=== PATIENT | female | born 1985 | race Caucasian/White ===

== ENCOUNTER 2021-03-18 02:47 | Emergency (ER) | payer OTHER ==
[2021-03-18 02:58] VITALS: RESP 18
[2021-03-18] MEDS ORDERED: Acetaminophen-Codeine 300-30mg TAB PO STA (03:45)
[2021-03-18] MEDS ORDERED: KETOROLAC 15 MG/ML 1 ML VIAL IM STA (03:45)
--- NOTE | 2021-03-18 03:47 | ED ---
Back Pain HPI - General Chief Complaint: Back Pain/Injury Stated Complaint: Back pain Time Seen by Provider: 03/18/21 02:48 Source: patient, RN notes reviewed, old records reviewed Limitations: no limitations - History of Present Illness Initial Comments: This is a 35-year-old female who presents here today. Back pain bilateral back pain that radiates from both flanks. Low back pain groin area. Patient has otherwise no significant complaints, noted dysuria, no blood in the urine no difficulty with bowel movements. No trauma no fevers. MD Complaint: back pain -: days(s) (3) Similar Symptoms Previously: Yes Place: home Radiation: groin Severity: moderate Severity scale (1-10): 4 Quality: dull Consistency: intermittent Improves With: none Worsens With: none Context: unknown Associated Symptoms: denies other symptoms Treatments Prior to Arrival: acetaminophen, other (none) - Related Data Allergies Allergy/AdvReac Type Severity Reaction Status Date / Time morphine AdvReac Itching Verified 03/18/21 02:58 Review of Systems ROS Statement: Those systems with pertinent positive or pertinent negative responses have been documented in the HPI. ROS Other: All systems not noted in ROS Statement are negative. Past Medical History Past Medical History: No Reported History Additional Past Medical History / Comment(s): OCD, History of Any Multi-Drug Resistant Organisms: None Reported Past Surgical History: Cholecystectomy Past Psychological History: Bipolar Smoking Status: Current every day smoker Past Alcohol Use History: None Reported Past Drug Use History: Marijuana General Exam Limitations: no limitations General appearance: alert, in no apparent distress Head exam: Present: atraumatic, normocephalic, normal inspection Eye exam: Present: normal appearance, PERRL, EOMI. Absent: scleral icterus, conjunctival injection, periorbital swelling ENT exam: Present: normal exam, mucous membranes moist Neck exam: Present: normal inspection. Absent: tenderness, meningismus, lymphadenopathy Respiratory exam: Present: normal lung sounds bilaterally. Absent: respiratory distress, wheezes, rales, rhonchi, stridor Cardiovascular Exam: Present: regular rate, normal rhythm, normal heart sounds. Absent: systolic murmur, diastolic murmur, rubs, gallop, clicks GI/Abdominal exam: Present: soft, normal bowel sounds. Absent: distended, tenderness, guarding, rebound, rigid Extremities exam: Present: normal inspection, full ROM, normal capillary refill. Absent: tenderness, pedal edema, joint swelling, calf tenderness Back exam: Present: normal inspection Neurological exam: Present: alert, oriented X3, CN II-XII intact Psychiatric exam: Present: normal affect, normal mood Skin exam: Present: warm, dry, intact, normal color. Absent: rash Course Vital Signs 03/18/21 03/18/21 03/18/21 02:52 05:00 05:53 Temperature 99.2 F 98.7 F Pulse Rate 92 83 61 Respiratory 18 18 18 Rate Blood Pressure 115/76 105/53 124/79 O2 Sat by Pulse 96 98 98 Oximetry - Reevaluation(s) Reevaluation #1: 03/18/21 03:47 Medical record is reviewed Reevaluation #2: Patient symptoms are significantly improved Patient family informed results questions answered Medical Decision Making - Medical Decision Making 35 female to the ER for evaluation of back pain severe back pain positive for kidney stone pain is well-controlled currently and patient can be discharged home - Lab Data Lab Results 03/18/21 03/18/21 Range/Units 03:55 03:55 Urine Color Yellow Urine Appearance Clear (Clear) Urine pH 6.5 (5.0-8.0) Ur Specific [place] 1.021 (1.001-1.035) Urine Protein Negative (Negative) Urine Glucose (UA) Negative (Negative) Urine Ketones Negative (Negative) Urine Blood Negative (Negative) Urine Nitrite Negative (Negative) Urine Bilirubin Negative (Negative) Urine Urobilinogen <2.0 (<2.0) mg/dL Ur Leukocyte Esterase Negative (Negative) Urine HCG, Qual Not Detected (Not Detectd) - Radiology Data Radiology results: report reviewed (CT abdomen and pelvis is positive for kidney stone), image reviewed Disposition Clinical Impression: Mid back pain, Kidney stone Disposition: HOME SELF-CARE Condition: Good Instructions (If sedation given, give patient instructions): Acute Low Back Pain (ED) Is patient prescribed a controlled substance at d/c from ED?: No Referrals: None,Stated [Primary Care Provider] - 1-2 days
[2021-03-18 04:32] LABS: Appearance,Urine Clear (Clear); Bilirubin,Urine Negative (Negative); Blood,Urine Negative (Negative); Color,Urine Yellow; Glucose,Urine (UA) Negative (Negative); Ketones,Urine Negative (Negative); Leukocyte Esterase,Urine Negative (Negative); Nitrite,Urine Negative (Negative); PH, Urine 6.5 (5.0-8.0); Protein,Urine Negative (Negative); Specific Gravity,Urine 1.021 (1.001-1.035); Urobilinogen,Urine <2.0 mg/dL (<2.0)
--- NOTE | 2021-03-18 05:26 | CT ---
EXAMINATION TYPE: CT abdomen pelvis wo con DATE OF EXAM: 03/18/2021 COMPARISON: None HISTORY: bilateral flank pain and back pain CT DLP: 632.50 mGycm Automated exposure control for dose reduction was used. Images obtained from the diaphragm to the floor the pelvis without contrast. Lung bases are clear. There is no pleural effusion. Heart size is normal. There is no pericardial eff usion. There are clips from cholecystectomy. Liver and spleen appear intact. The bile ducts are not dilated. There is no evidence of pancreatic mass. The stomach is intact. There is no adrenal mass. Kidneys have normal size. There is no hydronephrosis. There is 2 mm calculu s upper pole left kidney. There is no evidence of a solid renal mass. There is no retroperitoneal breezy nopathy. The bladder distends smoothly. There is no inguinal hernia. There is no free fluid in the pe lvis. I see no evidence of a pelvic mass. Uterus is anteverted. There is no mesenteric edema. There is no ascites or free air. There is no bowel obstruction. Appendi x is posterior in the pelvis and appears normal. The lumbar vertebra have normal spacing and alignment. Posterior elements are intact. Disc spaces are well-maintained. The hip joints are intact. Bony pelvis is intact. IMPRESSION: Nonobstructing left renal calculus. No dilated ducts. Normal appendix.
[2021-03-18] MEDS ORDERED: TAMSULOSIN 0.4 MG CAP.ER.24H PO STA (05:44)
[2021-03-18] MEDS ORDERED: ACET/COD 300 MG/30 MG STARTER PACK 6 TAB BTL PO STA (05:45)
[2021-03-18] MEDS ORDERED: IBUPROFEN 600 MG STARTER PACK 4 TAB BTL PO STA (05:45)
[2021-03-18 06:00] VITALS: BP 124/79; PULSE 61; TEMP 98.7
== END 2021-03-18 06:01 | disposition home or self-care (01) ==
LOC: EC 02:47
DX: N20.0 Calculus of kidney (principal); M54.6 Pain in thoracic spine; F17.200 Nicotine dependence, unspecified, uncomplicated; Z88.5 Allergy status to narcotic agent
CPT/HCPCS: 81003; 81025; 74176; 99284; 96372; J1885

== ENCOUNTER 2021-06-08 07:56 | Emergency (ER) | payer OTHER ==
[2021-06-08] MEDS ORDERED: SODIUM CHLORIDE 0.9% 2,000 ML IV STA (08:00)
[2021-06-08] MEDS ORDERED: diphenhydrAMINE 50 MG/ML 1 ML VIAL IVP STA (08:00)
[2021-06-08] MEDS ORDERED: ONDANSETRON 4 MG/2 ML VIAL IVP STA (08:00)
[2021-06-08] MEDS ORDERED: FAMOTIDINE 20 MG/2 ML VIAL IV STA (08:02)
[2021-06-08] MEDS ORDERED: HYDROmorphone 0.2 MG/1 ML SYRINGE IVP STA (08:02)
[2021-06-08 08:12] VITALS: TEMP 98.2
--- NOTE | 2021-06-08 08:20 | ED ---
General Adult HPI - General Chief complaint: Abdominal Pain Stated complaint: Nausea/Vomiting Time Seen by Provider: 06/08/21 08:00 Source: patient, EMS, RN notes reviewed, old records reviewed Mode of arrival: EMS Limitations: no limitations - History of Present Illness Initial comments: Vanessa is a 35-year-old female with no significant past medical history who presents emergency Department complaining of a three-day history of nonbiliious nonbloody nausea, vomiting. Similar symptoms are present and multiple family members at home. Everyone else was tested for Covid except for the patient. All tested negative for Covid. The patient was not vaccinated for Covid. She endorses in addition to the nonbilious nonbloody emesis, some episodes of loose nonbloody bowel movements. Denies any fevers. Denies any shortness of breath or chest pain. Endorses epigastric and right upper quadrant abdominal pain. This pain is worse when she throws up. Describes it as achy. Does not radiate. Denies any dysuria, hematuria, vaginal discharge or bleeding. Denies being . States she has not been able to keep anything down the last few days. She does smoke marijuana on a daily basis. Denies any other drug use or alcohol use. Presents emergency department over concern for nausea vomiting. Patient is actively vomiting as I obtain history. - Related Data Previous Rx's Medication Instructions Recorded Famotidine [Pepcid] 20 mg PO DAILY 14 Days #14 tablet 06/08/21 Mag Hydrox/Al Hydrox/Simeth 30 ml PO BID PRN #500 ml 06/08/21 [Maalox] Ondansetron Odt [Zofran Odt] 4 mg PO Q8HR PRN 3 Days #9 tab 06/08/21 Allergies Allergy/AdvReac Type Severity Reaction Status Date / Time morphine AdvReac Itching Verified 06/08/21 08:12 Review of Systems ROS Statement: Those systems with pertinent positive or pertinent negative responses have been documented in the HPI. Review of Systems: CONST: Denies fever EYES: Denies blurry vision ENT: Denies nasal congestion C/V: Denies Chest pain RESP: Denies shortness of breath GI: Endorses abdominal pain, nausea, vomiting : Denies dysuria SKIN: Denies rash. MSK: Denies joint pain. NEURO: Denies headache ROS Other: All systems not noted in ROS Statement are negative. Past Medical History Past Medical History: No Reported History Additional Past Medical History / Comment(s): OCD History of Any Multi-Drug Resistant Organisms: None Reported Past Surgical History: Cholecystectomy Past Psychological History: Bipolar Smoking Status: Current every day smoker Past Alcohol Use History: None Reported Past Drug Use History: Marijuana General Exam - General Exam Comments Initial Comments: General: Appears in no active distress secondary to nausea and vomiting. HEAD: Normal with no signs of head trauma. EYES: PERRLA, EOMI, conjunctiva normal, no discharge. ENT: Hearing grossly intact, normal oropharynx. Dry mucous membranes. RESPIRATORY: Clear breath sounds bilaterally. No wheezes, rales, or rhonchi. C/V: Regular rate and rhythm. S1 and S2 auscultated, no edema, peripheral pulses 2+ and intact throughout ABD: Abdomen is soft, nondistended. Patient is tender to palpation in the epigastric and right upper quadrant region. No guarding. No peritoneal signs. No rebound tenderness. EXT: Normal range of motion, no obvious deformity SKIN: No rashes or lesions observed on exposed skin. NEURO: Alert and oriented 4. No focal deficits. Limitations: no limitations Course Vital Signs 06/08/21 06/08/21 08:02 09:27 Temperature 98.2 F Pulse Rate 73 57 L Respiratory 22 16 Rate Blood Pressure 131/93 105/61 O2 Sat by Pulse 98 96 Oximetry Medical Decision Making - Medical Decision Making Based on the patient's presentation and physical exam, I am concerned for acute intra-abdominal process for the patient. Femoral COVID-19 infection. Therefore we will obtain abdominal laboratory studies, right upper quadrant ultrasound, as well as COVID-19 swab. She'll be symptomatically treated with 1 L fluid bolus, antiemetics and pain medication. Patient was in agreement with this plan.Screening EKG will be obtained as well. Patient's EKG showed no signs of ischemia. Chest x-ray shows no acute cardiopulmonary process. Gallbladder ultrasound reveals chronic changes status post cholecystectomy with a mildly enlarged liver as well as mildly dilated CBD which could be secondary to his surgery. Corresponding LFTs and alk phos are unchanged. Bilirubin is normal. No suspicion for obstructive process at this time and the biliary tree. Laboratory studies otherwise are remarkable for mild with is likely reactive leukocytosis of 13.9. CBC shows signs of hemoconcentration secondary to dehydration. Patient has a mild acidosis with a slight anion gap which is likely secondary to dehydration. Patient is a mild [place] eye with a creatinine of 1.22 and BUN 23 which is likely secondary to dehydration. Urinalysis is unremarkable. Patient is not . Covid 19 swab is negative. On reevaluation following multiple fluid boluses, and antiemetic treatment she is feeling improved. We discussed results of her laboratory studies and imaging. I believe it is safer to be discharged home at this time and she was in agreement this plan. She is asking to leave immediately. I discussed with her that due to her symptoms, is likely the entire household has a viral illness causing the current GI symptoms. We discussed the importance of a bland diet as well as hydration. She was in agreement and expressed understanding. I will provide the patient with a prescription for Zofran ODT, famotidine, Maalox. I instructed the patient to follow up with their PCP in the next 3 days. I provided contact information for follow up with PCP Dr. Hood.. I explained that the patient should return to the emergency department if they experience any worsening symptoms. Strict return precautions were discussed with the patient. The patient expressed understanding of these instructions. I answered all questions that the patient had. The patient was discharged home in fair condition with their prescriptions and follow up information. - Lab Data Result diagrams: 06/08/21 08:13 06/08/21 08:13 Lab Results 06/08/21 06/08/21 06/08/21 Range/Units 08:13 08:13 08:13 WBC 13.9 H (3.8-10.6) k/uL RBC 6.00 H (3.80-5.40) m/uL Hgb 16.7 H (11.4-16.0) gm/dL Hct 49.5 H (34.0-46.0) % MCV 82.6 (80.0-100.0) fL MCH 27.8 (25.0-35.0) pg MCHC 33.7 (31.0-37.0) g/dL RDW 13.6 (11.5-15.5) % Plt Count 509 H (150-450) k/uL MPV 7.4 Neutrophils % 74 % Lymphocytes % 17 % Monocytes % 5 % Eosinophils % 1 % Basophils % 0 % Neutrophils # 10.3 H (1.3-7.7) k/uL Lymphocytes # 2.4 (1.0-4.8) k/uL Monocytes # 0.7 (0-1.0) k/uL Eosinophils # 0.1 (0-0.7) k/uL Basophils # 0.0 (0-0.2) k/uL PT 10.8 (9.0-12.0) sec INR 1.0 (<1.2) APTT 25.1 (22.0-30.0) sec Sodium 136 L (137-145) mmol/L Potassium 3.7 (3.5-5.1) mmol/L Chloride 104 (98-107) mmol/L Carbon Dioxide 13 L (22-30) mmol/L Anion Gap 19 mmol/L BUN 23 H (7-17) mg/dL Creatinine 1.22 H (0.52-1.04) mg/dL Est GFR (CKD-EPI)AfAm 66 (>60 ml/min/1.73 sqM) Est GFR (CKD-EPI)NonAf 58 (>60 ml/min/1.73 sqM) Glucose 171 H (74-99) mg/dL Calcium 9.7 (8.4-10.2) mg/dL Total Bilirubin 1.2 (0.2-1.3) mg/dL AST 26 (14-36) U/L ALT 25 (4-34) U/L Alkaline Phosphatase 88 (38-126) U/L Total Protein 8.7 H (6.3-8.2) g/dL Albumin 4.9 (3.5-5.0) g/dL Amylase 54 (30-110) U/L Lipase 41 (23-300) U/L Urine Color Urine Appearance (Clear) Urine pH (5.0-8.0) Ur Specific [place] (1.001-1.035) Urine Protein (Negative) Urine Glucose (UA) (Negative) Urine Ketones (Negative) Urine Blood (Negative) Urine Nitrite (Negative) Urine Bilirubin (Negative) Urine Urobilinogen (<2.0) mg/dL Ur Leukocyte Esterase (Negative) Urine HCG, Qual (Not Detectd) Coronavirus (PCR) (Not Detectd) 06/08/21 06/08/21 06/08/21 Range/Units 08:13 08:13 10:00 WBC (3.8-10.6) k/uL RBC (3.80-5.40) m/uL Hgb (11.4-16.0) gm/dL Hct (34.0-46.0) % MCV (80.0-100.0) fL MCH (25.0-35.0) pg MCHC (31.0-37.0) g/dL RDW (11.5-15.5) % Plt Count (150-450) k/uL MPV Neutrophils % % Lymphocytes % % Monocytes % % Eosinophils % % Basophils % % Neutrophils # (1.3-7.7) k/uL Lymphocytes # (1.0-4.8) k/uL Monocytes # (0-1.0) k/uL Eosinophils # (0-0.7) k/uL Basophils # (0-0.2) k/uL PT (9.0-12.0) sec INR (<1.2) APTT (22.0-30.0) sec Sodium (137-145) mmol/L Potassium (3.5-5.1) mmol/L Chloride (98-107) mmol/L Carbon Dioxide (22-30) mmol/L Anion Gap mmol/L BUN (7-17) mg/dL Creatinine (0.52-1.04) mg/dL Est GFR (CKD-EPI)AfAm (>60 ml/min/1.73 sqM) Est GFR (CKD-EPI)NonAf (>60 ml/min/1.73 sqM) Glucose (74-99) mg/dL Calcium (8.4-10.2) mg/dL Total Bilirubin (0.2-1.3) mg/dL AST (14-36) U/L ALT (4-34) U/L Alkaline Phosphatase (38-126) U/L Total Protein (6.3-8.2) g/dL Albumin (3.5-5.0) g/dL Amylase (30-110) U/L Lipase (23-300) U/L Urine Color Yellow Urine Appearance Clear (Clear) Urine pH 6.5 (5.0-8.0) Ur Specific [place] 1.017 (1.001-1.035) Urine Protein Trace H (Negative) Urine Glucose (UA) Negative (Negative) Urine Ketones Negative (Negative) Urine Blood Negative (Negative) Urine Nitrite Negative (Negative) Urine Bilirubin Negative (Negative) Urine Urobilinogen <2.0 (<2.0) mg/dL Ur Leukocyte Esterase Negative (Negative) Urine HCG, Qual Not Detected (Not Detectd) Coronavirus (PCR) Not Detected (Not Detectd) - EKG Data -: EKG Interpreted by Me EKG Comments: 12-lead Electrocardiogram Interpretation Note EKG was reviewed and interpreted by myself. 12-lead ECG performed at 0831 is interpreted by me as revealing normal sinus rhythm at a rate of 63 beats per minute. [place] is normal. NE interval is 132 ms, QRS duration is 98 ms, QTc is 476 ms.. There were no ST or T wave abnormalities to suggest myocardial is chemia or injury. R wave progression across the precordium was satisfactory. By my interpretation this EKG is non-diagnostic for acute ischemia. Disposition Clinical Impression: Nausea and vomiting, Dehydration, Viral syndrome Disposition: HOME SELF-CARE Condition: Fair Prescriptions: Mag Hydrox/Al Hydrox/Simeth [Maalox] 30 ml PO BID PRN #500 ml PRN Reason: Dyspepsia Famotidine [Pepcid] 20 mg PO DAILY 14 Days #14 tablet Ondansetron Odt [Zofran Odt] 4 mg PO Q8HR PRN 3 Days #9 tab PRN Reason: Nausea Is patient prescribed a controlled substance at d/c from ED?: No Referrals: None,Stated [Primary Care Provider] - 1-2 days Ryanne Hood MD [REFERRING] - 1-2 days
[2021-06-08 08:26] LABS: Basophils % (A) 0 %; Eosinophils # (A) 0.1 k/uL (0-0.7); Eosinophils % (A) 1 %; HCT 49.5 % (34.0-46.0); HGB 16.7 gm/dL (11.4-16.0); Lymphocytes # (A) 2.4 k/uL (1.0-4.8); Lymphocytes % (A) 17 %; MCH 27.8 pg (25.0-35.0); MCHC 33.7 g/dL (31.0-37.0); MCV 82.6 fL (80.0-100.0); Mean Platelet Volume 7.4; Monocytes # (A) 0.7 k/uL (0-1.0); Monocytes % (A) 5 %; Neutrophils # (A) 10.3 k/uL (1.3-7.7); Neutrophils % (A) 74 %; Platelet Count 509 k/uL (150-450); RDW 13.6 % (11.5-15.5); WBC 13.9 k/uL (3.8-10.6)
[2021-06-08 08:39] LABS: Albumin 4.9 g/dL (3.5-5.0); Calcium 9.7 mg/dL (8.4-10.2); Potassium 3.7 mmol/L (3.5-5.1); Total Bilirubin 1.2 mg/dL (0.2-1.3); Total Protein 8.7 g/dL (6.3-8.2)
[2021-06-08 09:02] LABS: Partial Thromboplastin Time 25.1 sec (22.0-30.0); Prothrombin Time 10.8 sec (9.0-12.0)
[2021-06-08] MEDS ORDERED: MAGNESIUM SULFATE-D5W PMX 1 GM in DEXTROSE/WATER 1 100ML.BAG IVPB ONE (09:09)
[2021-06-08] MEDS ORDERED: HALOPERIDOL LACTATE 5 MG/ML 1 ML VIAL IVP STA (09:09)
--- NOTE | 2021-06-08 09:11 | XR ---
EXAMINATION TYPE: XR chest 2V DATE OF EXAM: 06/08/2021 COMPARISON: NONE HISTORY: Shortness of breath and weakness. TECHNIQUE: Frontal and lateral views of the chest are obtained. FINDINGS: There is no focal air space opacity, pleural effusion, or pneumothorax seen. The cardiac silhouette size is within normal limits. The osseous structures are intact. Cholecystectomy clips n oted on lateral view. IMPRESSION: No acute cardiopulmonary process.
--- NOTE | 2021-06-08 09:14 | US ---
EXAMINATION TYPE: US gallbladder DATE OF EXAM: 06/08/2021 COMPARISON: CT A&P 03/18/2021 CLINICAL HISTORY: 35-year-old female RUQ abd pain. Patient has had gallbladder removed. RUQ pain, [place] and vomiting. TECHNIQUE: Multiple sonographic images of the right upper quadrant are obtained. FINDINGS: EXAM MEASUREMENTS: Liver Length: 15.9 cm CBD: 0.87 cm Right Kidney: 9.2 x 4.0 x 5.0 cm Tax Accountant notes: Difficult exam due to constant patient movement Pancreas: Appears slightly echogenic Liver: Slightly echogenic periportal fat may be on a technical basis. No focal lesion seen. Gallbladder: Surgically absent Evidence for sonographic Camejo's sign: No CBD: No obstruction noted in portions visualized. Right Kidney: No hydronephrosis or masses seen IMPRESSION: 1. Echogenic periportal fat within the liver may be on a technical basis. Findings may also be seen w ith hepatitis. Correlate for normal LFTs. 2. Mildly dilated bile duct at 8.7 mm probably due to postcholecystectomy status. Correlate with tacos line phosphatase and bilirubin levels.
[2021-06-08 09:28] VITALS: RESP 16
[2021-06-08 10:17] LABS: Appearance,Urine Clear (Clear); Bilirubin,Urine Negative (Negative); Blood,Urine Negative (Negative); Color,Urine Yellow; Glucose,Urine (UA) Negative (Negative); Ketones,Urine Negative (Negative); Leukocyte Esterase,Urine Negative (Negative); Nitrite,Urine Negative (Negative); PH, Urine 6.5 (5.0-8.0); Protein,Urine Trace (Negative); Specific Gravity,Urine 1.017 (1.001-1.035); Urobilinogen,Urine <2.0 mg/dL (<2.0)
[2021-06-08] MEDS ORDERED: ONDANSETRON 4 MG ODT STARTER PACK 2 TAB BTL PO STA (10:42)
[2021-06-08 10:51] VITALS: BP 125/89; PULSE 61
== END 2021-06-08 10:51 | disposition home or self-care (01) ==
LOC: EC 07:56
DX: B34.9 Viral infection, unspecified (principal); E86.0 Dehydration; Z20.822 Contact with and (suspected) exposure to COVID-19
CPT/HCPCS: 36415; 93005; 80053; 82150; 83690; 85025; 85610; 85730; 81003; 81025; 87635; 71046; 76705; 99284; 96365; 96375; 96361; J1200; J1630; J2405; J3475; J1170; 99285

== ENCOUNTER 2021-06-09 04:41 | Emergency (ER) | payer OTHER ==
[2021-06-09 04:46] VITALS: TEMP 98.2
--- NOTE | 2021-06-09 05:39 | XR ---
EXAMINATION TYPE: XR KUB DATE OF EXAM: 06/09/2021 COMPARISON: NONE HISTORY: Nausea and vomiting TECHNIQUE: 2 views FINDINGS: There is no sign of intestinal obstruction or pneumoperitoneum. Fecal pattern is normal. Th ere are clips from cholecystectomy. There is no evidence of a mass. Lung bases are clear. IMPRESSION: Nonacute abdomen.
[2021-06-09] MEDS: ONDANSETRON 4 MG/2 ML VIAL IVP STA (05:42)
[2021-06-09 05:43] LABS: Basophils % (A) 0 %; Eosinophils # (A) 0.1 k/uL (0-0.7); Eosinophils % (A) 1 %; HCT 44.9 % (34.0-46.0); Lymphocytes # (A) 2.2 k/uL (1.0-4.8); Lymphocytes % (A) 22 %; MCH 26.9 pg (25.0-35.0); MCHC 33.3 g/dL (31.0-37.0); MCV 80.9 fL (80.0-100.0); Mean Platelet Volume 7.2; Monocytes # (A) 0.7 k/uL (0-1.0); Monocytes % (A) 6 %; Neutrophils % (A) 68 %; Platelet Count 395 k/uL (150-450); RBC 5.56 m/uL (3.80-5.40); RDW 13.5 % (11.5-15.5); WBC 10.2 k/uL (3.8-10.6)
[2021-06-09] MEDS: SODIUM CHLORIDE 0.9% 2,000 ML IV ONE (05:43)
[2021-06-09 05:56] LABS: Albumin 4.4 g/dL (3.5-5.0); Calcium 8.9 mg/dL (8.4-10.2); Potassium 3.8 mmol/L (3.5-5.1); Total Protein 7.7 g/dL (6.3-8.2)
[2021-06-09 06:15] LABS: Appearance,Urine Turbid (Clear); Bacteria,Urine Rare /hpf; Bilirubin,Urine Negative (Negative); Blood,Urine Trace (Negative); Color,Urine Yellow; Glucose,Urine (UA) Negative (Negative); Ketones,Urine 1+ (Negative); Leukocyte Esterase,Urine Large (Negative); Mucus,Urine Rare /hpf; Nitrite,Urine Negative (Negative); Protein,Urine 1+ (Negative); RBC,Urine 11 /hpf (0-5); Specific Gravity,Urine 1.033 (1.001-1.035); Squamous Epithelial Cell,Urine 76 /hpf (0-4); WBC,Urine 35 /hpf (0-5)
[2021-06-09] MEDS: PROCHLORPERAZINE INJ 10 MG/2 ML VIAL IM STA ×2 (06:44→08:21)
[2021-06-09] MEDS: KETOROLAC 15 MG/ML 1 ML VIAL IVP STA (08:13)
--- NOTE | 2021-06-09 08:41 | ED ---
Nausea/Vomiting/Diarrhea HPI - General Chief complaint: Nausea/Vomiting/Diarrhea Stated complaint: Vomiting Time Seen by Provider: 06/09/21 04:42 Source: patient, EMS Mode of arrival: EMS - History of Present Illness Initial comments: Patient is a 35-year-old woman here for nausea and vomiting. She has had some intermittent abdominal cramping but the vomiting is the main complaint. She was seen here earlier and sent home with prescription for antiemetic but had not had a chance to get the medication. Patient has not had any blood or coffee-ground emesis. MD complaint: nausea, vomiting -: days(s) Description of Vomiting: food contents Location: diffuse Severity: mild Quality: cramping Consistency: intermittent Improves with: none Worsens with: none Associated Symptoms: denies other symptoms - Related Data Previous Rx's Medication Instructions Recorded Famotidine [Pepcid] 20 mg PO DAILY 14 Days #14 tablet 06/08/21 Mag Hydrox/Al Hydrox/Simeth 30 ml PO BID PRN #500 ml 06/08/21 [Maalox] Ondansetron Odt [Zofran Odt] 4 mg PO Q8HR PRN 3 Days #9 tab 06/08/21 Prochlorperazine [Compazine] 10 mg PO Q6H PRN #15 tab 06/09/21 Allergies Allergy/AdvReac Type Severity Reaction Status Date / Time morphine AdvReac Itching Verified 06/08/21 08:12 Review of Systems ROS Statement: Those systems with pertinent positive or pertinent negative responses have been documented in the HPI. ROS Other: All systems not noted in ROS Statement are negative. Constitutional: Denies: fever, chills Respiratory: Denies: cough, dyspnea Cardiovascular: Denies: chest pain, palpitations Gastrointestinal: Reports: abdominal pain, nausea, vomiting. Denies: diarrhea, constipation, hematemesis, melena, hematochezia Genitourinary: Denies: dysuria, hematuria Musculoskeletal: Denies: back pain Skin: Denies: rash Neurological: Denies: headache, weakness, numbness Past Medical History Past Medical History: No Reported History Additional Past Medical History / Comment(s): OCD History of Any Multi-Drug Resistant Organisms: None Reported Past Surgical History: Cholecystectomy Past Psychological History: Bipolar Smoking Status: Current every day smoker Past Alcohol Use History: None Reported Past Drug Use History: Marijuana General Exam General appearance: alert, in no apparent distress Head exam: Present: atraumatic, normocephalic Eye exam: Present: normal appearance Respiratory exam: Present: normal lung sounds bilaterally. Absent: respiratory distress, wheezes, rales, rhonchi, stridor Cardiovascular Exam: Present: regular rate, normal rhythm, normal heart sounds. Absent: systolic murmur, diastolic murmur, rubs, gallop GI/Abdominal exam: Present: soft. Absent: distended, tenderness, guarding, rebound, rigid, mass, pulsatile mass Extremities exam: Present: normal inspection, normal capillary refill. Absent: pedal edema, calf tenderness Back exam: Present: normal inspection. Absent: CVA tenderness (R), CVA tenderness (L) Neurological exam: Present: alert Skin exam: Present: warm, dry, intact, normal color. Absent: rash Course Vital Signs 06/09/21 06/09/21 04:42 09:10 Temperature 98.2 F Pulse Rate 57 L 66 Respiratory 22 18 Rate Blood Pressure 141/92 138/76 O2 Sat by Pulse 97 99 Oximetry Medical Decision Making - Medical Decision Making Patient with nausea and vomiting who has had some improvement with fluids and medications. The abdominal exam does not reveal any tenderness or concern for surgical condition. Discussed appropriate further care and follow-up as well as return parameters. - Lab Data Result diagrams: 06/09/21 05:38 06/09/21 05:38 Lab Results 06/09/21 06/09/21 06/09/21 Range/Units 05:38 05:38 05:38 WBC 10.2 (3.8-10.6) k/uL RBC 5.56 H (3.80-5.40) m/uL Hgb 15.0 (11.4-16.0) gm/dL Hct 44.9 (34.0-46.0) % MCV 80.9 (80.0-100.0) fL MCH 26.9 (25.0-35.0) pg MCHC 33.3 (31.0-37.0) g/dL RDW 13.5 (11.5-15.5) % Plt Count 395 (150-450) k/uL MPV 7.2 Neutrophils % 68 % Lymphocytes % 22 % Monocytes % 6 % Eosinophils % 1 % Basophils % 0 % Neutrophils # 7.0 (1.3-7.7) k/uL Lymphocytes # 2.2 (1.0-4.8) k/uL Monocytes # 0.7 (0-1.0) k/uL Eosinophils # 0.1 (0-0.7) k/uL Basophils # 0.0 (0-0.2) k/uL Sodium 135 L (137-145) mmol/L Potassium 3.8 (3.5-5.1) mmol/L Chloride 106 (98-107) mmol/L Carbon Dioxide 17 L (22-30) mmol/L Anion Gap 12 mmol/L BUN 17 (7-17) mg/dL Creatinine 1.05 H (0.52-1.04) mg/dL Est GFR (CKD-EPI)AfAm 80 (>60 ml/min/1.73 sqM) Est GFR (CKD-EPI)NonAf 69 (>60 ml/min/1.73 sqM) Glucose 123 H (74-99) mg/dL Plasma Lactic Acid Prasanth 1.3 (0.7-2.0) mmol/L Calcium 8.9 (8.4-10.2) mg/dL Total Bilirubin 1.0 (0.2-1.3) mg/dL AST 32 (14-36) U/L ALT 20 (4-34) U/L Alkaline Phosphatase 70 (38-126) U/L Total Protein 7.7 (6.3-8.2) g/dL Albumin 4.4 (3.5-5.0) g/dL Amylase 59 (30-110) U/L Lipase 124 (23-300) U/L Urine Color Urine Appearance (Clear) Urine pH (5.0-8.0) Ur Specific [place] (1.001-1.035) Urine Protein (Negative) Urine Glucose (UA) (Negative) Urine Ketones (Negative) Urine Blood (Negative) Urine Nitrite (Negative) Urine Bilirubin (Negative) Urine Urobilinogen (<2.0) mg/dL Ur Leukocyte Esterase (Negative) Urine RBC (0-5) /hpf Urine WBC (0-5) /hpf Ur Squamous Epith Cells (0-4) /hpf Urine Bacteria (None) /hpf Urine Mucus (None) /hpf Coronavirus (PCR) (Not Detectd) 01/14/22 01/14/22 Range/Units 05:46 06:49 WBC (3.8-10.6) k/uL RBC (3.80-5.40) m/uL Hgb (11.4-16.0) gm/dL Hct (34.0-46.0) % MCV (80.0-100.0) fL MCH (25.0-35.0) pg MCHC (31.0-37.0) g/dL RDW (11.5-15.5) % Plt Count (150-450) k/uL MPV Neutrophils % % Lymphocytes % % Monocytes % % Eosinophils % % Basophils % % Neutrophils # (1.3-7.7) k/uL Lymphocytes # (1.0-4.8) k/uL Monocytes # (0-1.0) k/uL Eosinophils # (0-0.7) k/uL Basophils # (0-0.2) k/uL Sodium (137-145) mmol/L Potassium (3.5-5.1) mmol/L Chloride (98-107) mmol/L Carbon Dioxide (22-30) mmol/L Anion Gap mmol/L BUN (7-17) mg/dL Creatinine (0.52-1.04) mg/dL Est GFR (CKD-EPI)AfAm (>60 ml/min/1.73 sqM) Est GFR (CKD-EPI)NonAf (>60 ml/min/1.73 sqM) Glucose (74-99) mg/dL Plasma Lactic Acid Prasanth (0.7-2.0) mmol/L Calcium (8.4-10.2) mg/dL Total Bilirubin (0.2-1.3) mg/dL AST (14-36) U/L ALT (4-34) U/L Alkaline Phosphatase (38-126) U/L Total Protein (6.3-8.2) g/dL Albumin (3.5-5.0) g/dL Amylase (30-110) U/L Lipase (23-300) U/L Urine Color Yellow Urine Appearance Turbid H (Clear) Urine pH 6.0 (5.0-8.0) Ur Specific [place] 1.033 (1.001-1.035) Urine Protein 1+ H (Negative) Urine Glucose (UA) Negative (Negative) Urine Ketones 1+ H (Negative) Urine Blood Trace H (Negative) Urine Nitrite Negative (Negative) Urine Bilirubin Negative (Negative) Urine Urobilinogen 2.0 (<2.0) mg/dL Ur Leukocyte Esterase Large H (Negative) Urine RBC 11 H (0-5) /hpf Urine WBC 35 H (0-5) /hpf Ur Squamous Epith Cells 76 H (0-4) /hpf Urine Bacteria Rare H (None) /hpf Urine Mucus Rare H (None) /hpf Coronavirus (PCR) Not Detected (Not Detectd) Disposition Clinical Impression: Nausea and vomiting Disposition: HOME SELF-CARE Condition: Good Instructions (If sedation given, give patient instructions): Acute Nausea and Vomiting (ED) Prescriptions: Prochlorperazine [Compazine] 10 mg PO Q6H PRN #15 tab PRN Reason: Vomiting Is patient prescribed a controlled substance at d/c from ED?: No Referrals: None,Stated [Primary Care Provider] - 1-2 days
[2021-06-09 09:11] VITALS: BP 138/76; PULSE 66; RESP 18
== END 2021-06-09 09:10 | disposition home or self-care (01) ==
LOC: EC 04:41
DX: R11.2 Nausea with vomiting, unspecified (principal); R10.9 Unspecified abdominal pain; F17.200 Nicotine dependence, unspecified, uncomplicated; Z90.49 Acquired absence of other specified parts of digestive tract; Z88.5 Allergy status to narcotic agent; Z20.822 Contact with and (suspected) exposure to COVID-19
CPT/HCPCS: 36415; 80053; 82150; 83605; 83690; 85025; 81001; 87086; 87635; 74018; 99284; 96374; 96372; 96375; 96361; J0780; J2405; J1885